=== PATIENT | male | born 1990 | race Caucasian/White ===

== ENCOUNTER 2023-09-08 19:12 | Inpatient (IN) | payer OTHER ==
[2023-09-08] MEDS ORDERED: ACETAMINOPHEN 1000 MG/100 ML BAG IVPB ONE (19:57)
[2023-09-08] MEDS ORDERED: PANTOPRAZOLE SODIUM 40 MG VIAL IVPUSH ONE (20:03)
[2023-09-08] MEDS ORDERED: LACTATED RINGERS SOLUTION 1000 ML INFUS.BAG IV ONE (20:03)
[2023-09-08] MEDS ORDERED: FAMOTIDINE 20 MG/50 ML IVPB 20 MG/50 ML MG IVPB ONE ×2 (20:03→20:29)
[2023-09-08] MEDS ORDERED: ACETAMINOPHEN INJECTION 100 ML IVPB ONE (20:28)
[2023-09-08] MEDS ORDERED: PANTOPRAZOLE SODIUM 40 MG/100 ML BAG IVPB ONE (20:29)
[2023-09-08 21:00] LABS: BASO % 0.7 % (0-2.0); HEMATOCRIT 46.4 % (35.4-49); HEMOGLOBIN 15.5 GM/dL (11.7-16.9); LYMPH % 13.5 % (8-40); MCH 28.7 pg (25.7-33.7); MCHC 33.4 g/dl (32.0-35.9); MEAN CELL VOLUME 85.8 fl (80-96); MEAN PLT VOLUME 8.9 fl (7.5-11.1); MONO % 5.8 % (3.8-10.2); PLATELET COUNT 236 10^3/uL (134-434); RBC 5.41 M/mm3 (4.00-5.60); RDW 14.2 % (11.9-15.9); WHITE BLOOD COUNT 17.9 K/mm3 (4.0-10.0)
[2023-09-08 21:07] LABS: INR 1.28 (0.83-1.09); PROTHROMBIN TIME (PATIENT) 14.8 SEC (9.7-13.0)
[2023-09-08 21:10] LABS: ACTIVATED PTT 36.2 SECONDS (25.2-36.5)
[2023-09-08 21:17] LABS: POTASSIUM 3.5 mmol/L (3.5-5.1)
[2023-09-08 21:19] LABS: CALCIUM 8.9 mg/dL (8.5-10.1)
[2023-09-08 21:19] LABS: EPI CELLS 4 /uL (0-25.1); HYALINE CASTS 0 /uL (0-3.1); URINE APPEARANCE CLEAR; URINE BACTERIA 2 /uL (0-1359); URINE BILIRUBIN NEGATIVE (NEGATIVE); URINE COLOR DK YELLOW; URINE GLUCOSE (UA) NEGATIVE (NEGATIVE); URINE KETONE NEGATIVE (NEGATIVE); URINE LEUK ESTERASE NEGATIVE (NEGATIVE); URINE NITRITE NEGATIVE (NEGATIVE); URINE PROTEIN 1+ (NEGATIVE); URINE RBC 13 /uL (0-23.9); URINE WBC 10 /uL (0-25.8)
[2023-09-08 21:22] LABS: CREATININE 0.9 mg/dL (0.55-1.3)
[2023-09-08 21:24] LABS: BILIRUBIN,TOTAL 1.8 mg/dL (0.2-1); TOT PROT 7.7 g/dl (6.4-8.2)
[2023-09-08 22:27] LABS: BILIRUBIN,DIRECT 0.4 mg/dL (0.0-0.2)
[2023-09-08] MEDS ORDERED: PIPERACILLIN/TAZOB 4.5 GM 4.5 GM in DEXTROSE 5%-WATER 100 ML IVPB ONE (22:58)
[2023-09-09] MEDS ORDERED: PIPERACILLIN/TAZOB 4.5 GM 4.5 GM/100 ML BAG IVPB ONE (00:22)
[2023-09-09] MEDS ORDERED: PIPERACILLIN/TAZOB 3.375 GM 3.375 GM in DEXTROSE 5%-WATER - 50 ML IVPB SCH ×2 (02:00→06:00)
[2023-09-09] MEDS: SODIUM CHLORIDE 1,000 ML IV SCH ×3 (02:30→16:30)
[2023-09-09] MEDS: ACETAMINOPHEN 1000 MG/100 ML BAG IVPB PRN ×2 (04:50→20:03)
[2023-09-09 05:10] VITALS: BMI 33.9
[2023-09-09] MEDS: PIPERACILLIN/TAZOB 3.375 GM 3.375 GM in DEXTROSE 5%-WATER - 50 ML IVPB SCH ×4 (07:51→21:51)
[2023-09-09] MEDS: ENOXAPARIN NA (PORCINE) 40 MG/0.4 ML DISP.SYRIN SQ SCH (09:21)
[2023-09-09 09:25] LABS: BASO % 0.5 % (0-2.0); EOS % 0.1 % (0-4.5); HEMATOCRIT 40.2 % (35.4-49); HEMOGLOBIN 13.3 GM/dL (11.7-16.9); LYMPH % 12.4 % (8-40); MCH 28.7 pg (25.7-33.7); MEAN CELL VOLUME 86.9 fl (80-96); MEAN PLT VOLUME 9.7 fl (7.5-11.1); PLATELET COUNT 199 10^3/uL (134-434); RBC 4.62 M/mm3 (4.00-5.60); WHITE BLOOD COUNT 16.8 K/mm3 (4.0-10.0)
[2023-09-09 09:50] LABS: POTASSIUM 3.4 mmol/L (3.5-5.1)
[2023-09-09 10:02] LABS: BLOOD UREA NITROGEN 10.1 mg/dL (7-18); CALCIUM 8.3 mg/dL (8.5-10.1); MAGNESIUM 1.8 mg/dL (1.8-2.4)
[2023-09-09 10:03] LABS: ALBUMIN 3.4 g/dl (3.4-5.0)
[2023-09-09 10:06] LABS: CREATININE 0.6 mg/dL (0.55-1.3)
[2023-09-09 10:07] LABS: BILIRUBIN,TOTAL 1.6 mg/dL (0.2-1); TOT PROT 6.7 g/dl (6.4-8.2)
[2023-09-09] MEDS ORDERED: CEFTRIAXONE 2 GM in DEXTROSE 5%-WATER 100 ML IVPB SCH (15:00)
[2023-09-09 15:07] LABS: BILIRUBIN,DIRECT 0.4 mg/dL (0.0-0.2)
[2023-09-09] MEDS: KCL 10 MEQ IVPB 10 MEQ/100 ML INFUS.BAG IVPB SCH ×2 (16:30→17:57)
[2023-09-10] MEDS ORDERED: PIPERACILLIN/TAZOB 3.375 GM 3.375 GM in DEXTROSE 5%-WATER - 50 ML IVPB SCH ×2 (02:00→14:30)
[2023-09-10] MEDS: PIPERACILLIN/TAZOB 3.375 GM 3.375 GM in DEXTROSE 5%-WATER - 50 ML IVPB SCH ×4 (02:44→20:37)
[2023-09-10] MEDS ORDERED: ACETAMINOPHEN 325 MG TABLET (FP) PO PRN (05:39)
[2023-09-10 08:57] LABS: BASO % 0.2 % (0-2.0); EOS % 0.1 % (0-4.5); HEMATOCRIT 38.5 % (35.4-49); HEMOGLOBIN 12.8 GM/dL (11.7-16.9); LYMPH % 11.3 % (8-40); MCH 28.8 pg (25.7-33.7); MCHC 33.4 g/dl (32.0-35.9); MEAN CELL VOLUME 86.2 fl (80-96); MEAN PLT VOLUME 9.7 fl (7.5-11.1); MONO % 4.6 % (3.8-10.2); NEUT % 83.8 % (42.8-82.8); PLATELET COUNT 214 10^3/uL (134-434); RBC 4.46 M/mm3 (4.00-5.60); RDW 14.3 % (11.9-15.9); WHITE BLOOD COUNT 13.7 K/mm3 (4.0-10.0)
[2023-09-10 09:10] LABS: POTASSIUM 3.4 mmol/L (3.5-5.1)
[2023-09-10] MEDS: ENOXAPARIN NA (PORCINE) 40 MG/0.4 ML DISP.SYRIN SQ SCH (09:11)
[2023-09-10 09:12] LABS: ALBUMIN 2.9 g/dl (3.4-5.0); BLOOD UREA NITROGEN 12.2 mg/dL (7-18); MAGNESIUM 2.4 mg/dL (1.8-2.4)
[2023-09-10 09:15] LABS: CREATININE 0.7 mg/dL (0.55-1.3)
[2023-09-10 09:17] LABS: TOT PROT 6.7 g/dl (6.4-8.2)
[2023-09-10 10:37] LABS: EPI CELLS 12 /uL (0-25.1); HYALINE CASTS 1 /uL (0-3.1); URINE APPEARANCE CLEAR; URINE BACTERIA 3 /uL (0-1359); URINE BILIRUBIN 1+ (NEGATIVE); URINE COLOR DK YELLOW; URINE GLUCOSE (UA) NEGATIVE (NEGATIVE); URINE KETONE 3+ (NEGATIVE); URINE LEUK ESTERASE NEGATIVE (NEGATIVE); URINE NITRITE NEGATIVE (NEGATIVE); URINE PROTEIN 1+ (NEGATIVE); URINE RBC 35 /uL (0-23.9); URINE WBC 19 /uL (0-25.8)
[2023-09-10] MEDS: SODIUM CHLORIDE 1,000 ML IV SCH ×2 (14:28→21:41)
[2023-09-10] MEDS: AMINO ACIDS 4.25%/D5W 1,000 ML IV SCH (20:41)
[2023-09-10] MEDS: KCL 10 MEQ IVPB 10 MEQ/100 ML INFUS.BAG IVPB SCH ×2 (21:36→22:57)
[2023-09-11] MEDS: PIPERACILLIN/TAZOB 3.375 GM 3.375 GM in DEXTROSE 5%-WATER - 50 ML IVPB SCH ×4 (02:46→22:28)
[2023-09-11] MEDS: SODIUM CHLORIDE 1,000 ML IV SCH ×2 (05:48→20:56)
[2023-09-11 09:29] LABS: BASO % 0.4 % (0-2.0); EOS % 1.9 % (0-4.5); HEMATOCRIT 35.3 % (35.4-49); LYMPH % 18.9 % (8-40); MCH 29.7 pg (25.7-33.7); MCHC 33.9 g/dl (32.0-35.9); MEAN CELL VOLUME 87.4 fl (80-96); MEAN PLT VOLUME 9.5 fl (7.5-11.1); MONO % 4.9 % (3.8-10.2); NEUT % 73.9 % (42.8-82.8); PLATELET COUNT 223 10^3/uL (134-434); RBC 4.04 M/mm3 (4.00-5.60); RDW 14.2 % (11.9-15.9); WHITE BLOOD COUNT 9.5 K/mm3 (4.0-10.0)
[2023-09-11] MEDS: ENOXAPARIN NA (PORCINE) 40 MG/0.4 ML DISP.SYRIN SQ SCH (09:39)
[2023-09-11 09:46] LABS: POTASSIUM 3.8 mmol/L (3.5-5.1)
[2023-09-11 09:50] LABS: ALBUMIN 2.7 g/dl (3.4-5.0); CALCIUM 8.1 mg/dL (8.5-10.1)
[2023-09-11 09:51] LABS: BLOOD UREA NITROGEN 11.5 mg/dL (7-18); MAGNESIUM 2.3 mg/dL (1.8-2.4)
[2023-09-11 09:54] LABS: CREATININE 0.6 mg/dL (0.55-1.3)
[2023-09-11 09:55] LABS: BILIRUBIN,TOTAL 0.5 mg/dL (0.2-1); TOT PROT 6.4 g/dl (6.4-8.2)
[2023-09-11] MEDS: AMINO ACIDS 4.25%/D5W 1,000 ML IV SCH (22:37)
[2023-09-12] MEDS: PIPERACILLIN/TAZOB 3.375 GM 3.375 GM in DEXTROSE 5%-WATER - 50 ML IVPB SCH ×4 (02:21→21:45)
[2023-09-12] MEDS: SODIUM CHLORIDE 1,000 ML IV SCH ×2 (02:21→18:07)
[2023-09-12 09:01] LABS: BASO % 0.9 % (0-2.0); EOS % 3.2 % (0-4.5); HEMOGLOBIN 12.5 GM/dL (11.7-16.9); MCH 29.3 pg (25.7-33.7); MCHC 33.7 g/dl (32.0-35.9); MEAN PLT VOLUME 9.1 fl (7.5-11.1); MONO % 4.7 % (3.8-10.2); NEUT % 70.2 % (42.8-82.8); PLATELET COUNT 261 10^3/uL (134-434); RBC 4.26 M/mm3 (4.00-5.60); RDW 13.5 % (11.9-15.9); WHITE BLOOD COUNT 6.9 K/mm3 (4.0-10.0)
[2023-09-12] MEDS ORDERED: morphine SULFATE 4 MG/ML VIAL IVPUSH PRN (09:03)
[2023-09-12] MEDS ORDERED: ACETAMINOPHEN 500 MG TABLET (FP) PO PRN (09:03)
[2023-09-12 09:50] LABS: POTASSIUM 3.9 mmol/L (3.5-5.1)
[2023-09-12 09:54] LABS: BLOOD UREA NITROGEN 9.5 mg/dL (7-18); CALCIUM 8.5 mg/dL (8.5-10.1)
[2023-09-12 09:56] LABS: MAGNESIUM 2.1 mg/dL (1.8-2.4)
[2023-09-12 09:57] LABS: CREATININE 0.5 mg/dL (0.55-1.3)
[2023-09-12 09:58] LABS: BILIRUBIN,TOTAL 0.5 mg/dL (0.2-1)
[2023-09-12 09:59] LABS: TOT PROT 6.7 g/dl (6.4-8.2)
[2023-09-12] MEDS: ENOXAPARIN NA (PORCINE) 40 MG/0.4 ML DISP.SYRIN SQ SCH (10:42)
[2023-09-12] MEDS: AMINO ACIDS 4.25%/D5W 1,000 ML IV SCH (10:43)
[2023-09-13] MEDS: AMINO ACIDS 4.25%/D5W 1,000 ML IV SCH (00:06)
[2023-09-13] MEDS: PIPERACILLIN/TAZOB 3.375 GM 3.375 GM in DEXTROSE 5%-WATER - 50 ML IVPB SCH ×4 (02:53→21:06)
[2023-09-13] MEDS: ENOXAPARIN NA (PORCINE) 40 MG/0.4 ML DISP.SYRIN SQ SCH (09:11)
[2023-09-13 10:10] LABS: BASO % 0.8 % (0-2.0); EOS % 3.5 % (0-4.5); HEMATOCRIT 39.8 % (35.4-49); HEMOGLOBIN 13.4 GM/dL (11.7-16.9); LYMPH % 27.4 % (8-40); MCH 29.2 pg (25.7-33.7); MCHC 33.6 g/dl (32.0-35.9); MEAN PLT VOLUME 8.9 fl (7.5-11.1); MONO % 5.9 % (3.8-10.2); NEUT % 62.4 % (42.8-82.8); PLATELET COUNT 333 10^3/uL (134-434); RBC 4.57 M/mm3 (4.00-5.60); RDW 13.7 % (11.9-15.9); WHITE BLOOD COUNT 6.1 K/mm3 (4.0-10.0)
[2023-09-13 10:27] LABS: POTASSIUM 4.1 mmol/L (3.5-5.1)
[2023-09-13 10:48] LABS: CALCIUM 8.9 mg/dL (8.5-10.1)
[2023-09-13 10:49] LABS: ALBUMIN 3.2 g/dl (3.4-5.0); BLOOD UREA NITROGEN 9.9 mg/dL (7-18); MAGNESIUM 2.4 mg/dL (1.8-2.4)
[2023-09-13 10:52] LABS: CREATININE 0.6 mg/dL (0.55-1.3)
[2023-09-13 10:53] LABS: BILIRUBIN,TOTAL 0.5 mg/dL (0.2-1); TOT PROT 7.2 g/dl (6.4-8.2)
[2023-09-14] MEDS: PIPERACILLIN/TAZOB 3.375 GM 3.375 GM in DEXTROSE 5%-WATER - 50 ML IVPB SCH ×2 (04:06→08:58)
[2023-09-14] MEDS: ENOXAPARIN NA (PORCINE) 40 MG/0.4 ML DISP.SYRIN SQ SCH (08:59)
[2023-09-14 09:33] LABS: BASO % 0.9 % (0-2.0); EOS % 3.4 % (0-4.5); HEMATOCRIT 41.8 % (35.4-49); HEMOGLOBIN 14.4 GM/dL (11.7-16.9); LYMPH % 26.4 % (8-40); MCH 29.6 pg (25.7-33.7); MCHC 34.4 g/dl (32.0-35.9); MEAN CELL VOLUME 85.9 fl (80-96); MEAN PLT VOLUME 8.5 fl (7.5-11.1); NEUT % 65.3 % (42.8-82.8); PLATELET COUNT 363 10^3/uL (134-434); RBC 4.87 M/mm3 (4.00-5.60); WHITE BLOOD COUNT 6.5 K/mm3 (4.0-10.0)
[2023-09-14 09:43] LABS: POTASSIUM 4.3 mmol/L (3.5-5.1)
[2023-09-14 09:44] LABS: CALCIUM 9.3 mg/dL (8.5-10.1)
[2023-09-14 09:45] LABS: ALBUMIN 3.2 g/dl (3.4-5.0); BLOOD UREA NITROGEN 10.2 mg/dL (7-18); MAGNESIUM 2.6 mg/dL (1.8-2.4)
[2023-09-14 09:48] LABS: CREATININE 0.7 mg/dL (0.55-1.3)
[2023-09-14 09:49] LABS: BILIRUBIN,TOTAL 0.5 mg/dL (0.2-1)
[2023-09-14 09:50] LABS: TOT PROT 7.5 g/dl (6.4-8.2)
[2023-09-14 11:24] VITALS: BP 126/72; PULSE 63; RESP 18; TEMP 98.2
== END 2023-09-14 11:55 | disposition home or self-care (01) | DRG 720 ==
LOC: JER 19:12 → JERBED 22:58 → J8W 09-09 04:33 → OBSVTOIN 09-09 08:32 → J8W 09-10 10:03
PROVIDERS: ADMIT Internal Medicine; ATTEND Nurse Practitioner Acute Care
DX: A41.9 Sepsis, unspecified organism (principal); K57.32 Diverticulitis of large intestine without perforation or abscess without bleeding; E66.9 Obesity, unspecified; Z68.33 Body mass index [BMI] 33.0-33.9, adult; R17 Unspecified jaundice; D72.829 Elevated white blood cell count, unspecified; R63.0 Anorexia; Z68.31 Body mass index [BMI] 31.0-31.9, adult
CPT/HCPCS: 0241U-QW; 36415; 71045-TC-FY; 74177-TC; 76705-TC; 80053; 81003; 82248; 82308; 83605; 83690; 83735; 84100; 85025; 85610; 85730; 86140; 86850; 86900; 86901; 87040; 87045; 87046; 87086; 87324; 87449; 93005; 93010; 99285-25; G0378; Q9967